=== PATIENT | female | born 1990 | race Caucasian/White ===

== ENCOUNTER 2021-02-01 16:49 | Emergency (ER) | payer MEDICAID ==
--- NOTE | 2021-02-01 17:48 | EDM.PDOC ---
ED HPI GENERAL MEDICAL PROBLEM - General Chief Complaint: ENT Problem Stated Complaint: tooth abses Time Seen by Provider: 02/01/21 17:45 Source of Information: Reports: Patient History Limitations: Reports: No Limitations - History of Present Illness INITIAL COMMENTS - FREE TEXT/NARRATIVE: 30-year-old female who reports she has poor dentition. She reports that she has been intermittently having swelling and infections in her left lower jaw for some time. She reports that beginning about 3 days ago she noted increased swelling and increased pain along her left lower jaw along the posterior teeth which are quite carious and this has progressively worsened with time. She reports that there is a 4/10 level pain in the area. It is throbbing and aching. She has no trouble swallowing. She has no trouble breathing. She has had no fevers or chills. There has been no nausea or vomiting. She states she is simply here because she knows she needs of antibiotics and she also knows that she needs to try to arrange to see a dentist but she has been unable to this far. There are no other associated signs or symptoms. There are no other modifying factors. Onset: Other (2-3 days.) Duration: Getting Worse Location: Reports: Face (Left lower jaw area) Quality: Reports: Ache, Throbbing Severity: Moderate Improves with: Reports: Rest Worsens with: Reports: Eating Context: Reports: Other (As above.) Associated Symptoms: Reports: No Other Symptoms Treatments STABBER: Reports: Other (see below) (Nothing.) Tooth/Teeth Pain Score (Numeric/FACES): 4 - Related Data Allergies Allergy/AdvReac Type Severity Reaction Status Date / Time No Known Allergies Allergy Verified 02/01/21 17:24 Home Meds: Home Meds Amoxicillin/Clavulanate K [Augmentin 875-125 MG] 1 tab PO BID 10 Days #20 tablet 02/01/21 [Rx] Past Medical History - Past Health History Medical/Surgical History: Denies Medical/Surgical History CONTINU[employer]ING M[employer]DE [employer]ER History: Reports: Other (See Below) 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 Denies: Throat Pain, Throat Swelling Respiratory: Denies: Shortness of Breath, Cough Cardiovascular: Denies: Chest Pain, Lightheadedness Endocrine: Denies: Fatigue GI/Abdominal: Denies: Nausea, Vomiting : Denies: Dysuria, Hematuria Musculoskeletal: Denies: Neck Pain, Back Pain Skin: Denies: Diaphoresis, Rash Neurological: Denies: Dizziness, Headache Hematologic/Lymphatic: Denies: Easy Bleeding, Easy Bruising ED EXAM, ENT - Physical Exam Exam: See Below Exam Limited By: No Limitations General Appearance: Alert, WD/WN, No Apparent Distress Eye Exam: Bilateral Eye: EOMI, Normal Inspection Ears: Normal External Exam, Hearing Grossly Normal Nose: Normal Inspection, Normal Mucousa, No Blood Mouth/Throat: Dental Abcess, Dental Pain, Dental Tenderness, Gum Swelling, Other (All of the above is along the left jaw and all 4 the teeth appear to be quite serious and almost gone.) Head: Atraumatic, Normocephalic Neck: Normal Inspection, Supple, Non-Tender, Full Range of Motion Respiratory/Chest: No Respiratory Distress, Lungs Clear, Normal Breath Sounds, No Accessory Muscle Use, Chest Non-Tender Cardiovascular: Normal Peripheral Pulses, Regular Rate, Rhythm, No Murmur GI/Abdominal: Normal Bowel Sounds, Soft, Non-Tender Back: Normal Inspection, Full Range of Motion Extremities: Normal Inspection, Normal Range of Motion, Normal Capillary Refill Neurological: Alert, Oriented, CN II-XII Intact, Normal Cognition, No Motor/Sensory Deficits Skin: Warm, Dry, Intact, Normal Color, No Rash Course - Vital Signs Last Recorded V/S: Last Vital Signs Temp 36.9 C 02/01/21 17:15 Pulse 73 02/01/21 17:15 Resp 16 02/01/21 17:15 BP 93/64 02/01/21 17:15 Pulse Ox 96 02/01/21 17:15 - Orders/Labs/Meds Meds: Medications Discontinued Medications Generic Name Dose Route Start Last Admin Trade Name Freq PRN Reason Stop Dose Admin Amoxicillin 500 mg 02/01/21 18:01 02/01/21 18:22 Amoxicillin 500 Mg Cap PO 02/01/21 18:02 500 mg ONETIME ONE Administration Amoxicillin/Clavulanate Potassium 1 tab 02/01/21 18:01 02/01/21 18:22 Amoxicillin/Clavulanate K 500-125 Mg Tab PO 02/01/21 18:02 1 tab ONETIME ONE Administration - Re-Assessments/Exams Free Text/Narrative Re-Assessment/Exam: 02/01/21 18:00: Adult female with multiple carious dentition in her left lower jaw. There appears to be dental infections associated with multiple of these teeth with periapical abscesses. She does not appear toxic. I will give her Augmentin 875 mg twice a day for 10 days. She should follow up with a dentist as soon as she can arrange. She can take ibuprofen and Tylenol for pain as needed. Given a dose of Augmentin in the emergency department prior to discharge. Departure - Departure Time of Disposition: 18:15 Disposition: Home, Self-Care 01 Condition: Good Clinical Impression: Dental abscess, Dental caries - Discharge Information Prescriptions: Amoxicillin/Clavulanate K [Augmentin 875-125 MG] 1 tab PO BID 10 Days #20 tablet Instructions: Dental Abscess, [id number] Referrals: PCP,None [Primary Care Provider] - Forms: ED Department Discharge Additional Instructions: You have dental abscesses and infection along your left lower jaw. You can take ibuprofen and Tylenol as needed for pain. Medication as prescribed for the infection (Augmentin 875 mg). Follow-up with a dentist as soon as you can arrange. Back to the emergency department for trouble swallowing, trouble breathing, high fever, severe weakness or any other concerning signs or symptoms. Sepsis Event Note (ED) - Evaluation Sepsis Screening Result: No Definite Risk
[2021-02-01] MEDS ORDERED: Amoxicillin/Clavulanate K 500-125 MG Tab PO ONE (18:01)
[2021-02-01] MEDS ORDERED: Amoxicillin 500 MG Cap PO ONE (18:01)
== END 2021-02-01 18:26 | disposition home or self-care (01) ==
LOC: FB.ED 16:49
DX: K04.7 Periapical abscess without sinus (principal); K02.9 Dental caries, unspecified; Z72.0 Tobacco use
CPT/HCPCS: 99282; A9270

== ENCOUNTER 2023-12-22 09:20 | Emergency (ER) | payer MEDICAID ==
[2023-12-22 10:20] LABS: BILIRUBIN,URINE NEGATIVE (NEGATIVE); GLUCOSE,URINE NORMAL (NORMAL); KETONES,URINE NEGATIVE (NEGATIVE); LEUKOCYTE ESTERASE,URINE NEGATIVE (NEGATIVE); NITRITE,URINE NEGATIVE (NEGATIVE); OCCULT BLOOD,URINE MODERATE (NEGATIVE); PROTEIN,URINE NEGATIVE (NEGATIVE); UROBILINOGEN,URINE NORMAL (NEGATIVE)
[2023-12-22 10:22] LABS: APPEARANCE,URINE CLEAR (CLEAR); BACTERIA,URINE FEW (NS); COLOR,URINE YELLOW (YELLOW); RBC,URINE 0-5 (0-5); SQUAMOUS EPITHELIAL CELLS,UR MODERATE (NS,R,O); WBC,URINE 0-5 (0-5)
[2023-12-22 10:22] LABS: BASOPHILS PERCENT AUTO 0.5 % (0.2-1.5); EOSINOPHILS ABSOLUTE AUTO 0.1 x10-3/uL (0.0-0.8); EOSINOPHILS PERCENT AUTO 1.1 % (0.6-8.1); HEMATOCRIT 39.3 % (34.2-48.2); LYMPHOCYTES ABSOLUTE AUTO 1.4 x10-3/uL (1.0-4.4); LYMPHOCYTES PERCENT AUTO 17.2 % (18.4-52.1); MEAN CORPUSCULAR HEMOGLOBIN 29.2 pg (23.9-33.9); MEAN CORPUSCULAR HGB CONC 33.1 g/dL (31.9-34.8); MEAN CORPUSCULAR VOLUME 88.3 fL (76.7-100.5); MEAN PLATELET VOLUME 8.6 fL (7.1-12.4); MONOCYTES ABSOLUTE AUTO 0.8 x10-3/uL (0.3-1.0); MONOCYTES PERCENT AUTO 9.4 % (4.4-15.7); NEUTROPHILS ABSOLUTE AUTO 5.8 x10-3/uL (1.5-6.3); NEUTROPHILS PERCENT AUTO 71.8 % (30.8-76.2); PLATELET COUNT,PLT 232 x10(3)uL (151-488); RED BLOOD CELL COUNT 4.45 x10(6)uL (3.60-5.20); RED CELL DISTRIBUTION WIDTH 15.2 % (12.3-16.5); WHITE BLOOD CELL COUNT,WBC 8.1 x10-3/uL (3.0-10.3)
[2023-12-23 20:41] LABS: BACTERIAL VAGINOSIS BY TMA Positive; CANDIDA GLABRATA BY TMA Negative; CANDIDA SPECIES (OTHER) BY TMA Negative; TRICHOMONAS VAGINALIS BY TMA Negative
== END 2023-12-22 10:51 | disposition home or self-care (01) ==
LOC: FB.ED 09:20
DX: N76.1 Subacute and chronic vaginitis (principal)
CPT/HCPCS: 36415; 81001; 81513; 85025; 86140; 87481; 87661; 99283; 99284